=== PATIENT | female | born 1970 | race Caucasian/White ===

== ENCOUNTER 2017-10-19 07:28 | Emergency (ER) | payer OTHER ==
[2017-10-19 07:42] VITALS: TEMP 98.7; BMI 24.0
[2017-10-19] MEDS ORDERED: Morphine 4 mg/ml ISec IVP STA (08:27)
--- NOTE | 2017-10-19 08:30 | ED PDOC ---
Arrival/HPI - General Chief Complaint: Trauma Time Seen by Provider: 10/19/17 07:43 Historian: Patient - History of Present Illness Narrative History of Present Illness (Text): 10/19/17 08:25 Vy Rome is a 46 year old female, with no significant past medical history , presents to the emergency department complaining of right elbow pain s/p fall. Patient denies any head injury or LOC. Patient denies any fevers, chest pain, neck pain, abdominal pain, headache, dizziness, cough or any other complaints. Time/Duration: Prior to Arrival Symptom Onset: Sudden Symptom Course: Unchanged Activities at Onset: Light Context: Walking Past Medical History - Provider Review Nursing Documentation Reviewed: Yes - Psychiatric Hx Substance Use: No Family/Social History - Physician Review Nursing Documentation Reviewed: Yes Family/Social History: Unknown Family HX Smoking Status: Never Smoked Hx Alcohol Use: No Hx Substance Use: No Allergies/Home Meds Allergies/Adverse Reactions: Allergies No Known Allergies Allergy (Unverified 10/19/17 08:26) Review of Systems - Review of Systems Constitutional: Normal Eyes: Normal ENT: Normal Respiratory: Normal. absent: SOB, Cough Cardiovascular: Normal. absent: Chest Pain, Palpitations Gastrointestinal: Normal. absent: Abdominal Pain, Diarrhea, Nausea, Vomiting Genitourinary Female: Normal. absent: Dysuria, Frequency, Hematuria, Urine Output Changes Musculoskeletal: Other (right elbow pain). absent: Back Pain Skin: Normal. absent: Rash Neurological: Normal. absent: Headache, Dizziness Endocrine: Normal Hemo/Lymphatic: Normal Psychiatric: Normal Physical Exam Vital Signs Reviewed: Yes Vital Signs Temp Pulse Resp BP Pulse Ox 10/19/17 11:28 84 12 136/63 99 10/19/17 07:40 98.7 F 88 18 153/100 H 100 Temperature: Afebrile Blood Pressure: Normal Pulse: Regular Respiratory Rate: Normal Appearance: Positive for: Well-Appearing, Non-Toxic, Comfortable Pain Distress: None Mental Status: Positive for: Alert and Oriented X 3 - Systems Exam Head: Present: Atraumatic, Normocephalic Pupils: Present: PERRL Extroacular Muscles: Present: EOMI Conjunctiva: Present: Normal Mouth: Present: Moist Mucous Membranes Neck: Present: Normal Range of Motion Respiratory/Chest: Present: Clear to Auscultation, Good Air Exchange. No: Respiratory Distress, Accessory Muscle Use Cardiovascular: Present: Regular Rate and Rhythm, Normal S1, S2. No: Murmurs Abdomen: Present: Normal Bowel Sounds. No: Tenderness, Distention, Peritoneal Signs Back: Present: Normal Inspection Upper Extremity: Present: Edema (lateral aspect of right elbow). No: Cyanosis Lower Extremity: Present: Normal Inspection. No: Edema Neurological: Present: GCS=15, CN II-XII Intact, Speech Normal Skin: Present: Warm, Dry, Normal Color. No: Rashes Psychiatric: Present: Alert, Oriented x 3, Normal Insight, Normal Concentration Medical Decision Making ED Course and Treatment: 10/19/17 08:32 Impression: 46 year old female presents to the ED complaining of right elbow pain s/p fall. Plan: -- Xray Rt. Elbow -- Labs -- Morphine -- Reassess and disposition Progress Notes: 10/19/17 09:37 Xray Right Elbow reviewed, shows: BONES: Bone mineralization is normal. There there is a linear ossific density superior to the olecranon process. JOINTS: There is anterior dislocation of the elbow joint. SOFT TISSUES: Periarticular soft tissue swelling and edema. JOINT EFFUSION: Large joint effusion. OTHER FINDINGS: None. IMPRESSION: Anterior dislocation of the elbow joint. Case discussed with Dr. Mendez, who is aware and agrees with plan. Accepts patient into his care and will perform reduction procedure. 10/19/17 10:[address] Lainez, the patient's PMD, who is aware and agrees with plan. - Lab Interpretations Lab Results: 10/19/17 08:45 10/19/17 08:45 Lab Results 10/19/17 08:45: Sodium 140, Potassium 3.7, Chloride 106, Carbon Dioxide 23, Anion Gap 14, BUN 16, Creatinine 0.5 L, Est GFR ( Amer) > 60, Est GFR ( Non-Af Amer) > 60, Random Glucose 118 H, Calcium 8.9, Total Bilirubin 0.2, AST 41 H, ALT 34, Alkaline Phosphatase 111, Total Protein 7.4, Albumin 3.8, Globulin 3.6, Albumin/Globulin Ratio 1.0 L 10/19/17 08:45: PT 12.0, INR 1.04, APTT 29.1 10/19/17 08:45: WBC 7.8 D, RBC 4.87, Hgb 9.2 L, Hct 31.9 L, MCV 65.5 L, MCH 18.9 L, MCHC 28.8 L, RDW 18.8 H, Plt Count 425, MPV 9.9, Gran % 82.9 H, Lymph % (Auto) 11.1 L, [place] % (Auto) 4.2, Eos % (Auto) 1.4 L, Baso % (Auto) 0.4, Gran # 6.48, Lymph # (Auto) 0.9 L, [place] # (Auto) 0.3, Eos # (Auto) 0.1, Baso # (Auto) 0.03 - RAD Interpretation Radiology Orders: 10/19/17 08:26 ELBOW RIGHT 3 VIEWS ROUTINE [RAD] Stat 10/19/17 10:54 ELBOW RIGHT 3 VIEWS ROUTINE [RAD] Stat - Medication Orders Current Medication Orders: Discontinued Medications Morphine Sulfate (Morphine) 4 mg IVP STAT STA Stop: 10/19/17 08:28 Last Admin: 10/19/17 08:46 Dose: 4 mg LEYLA Pain Assessment Document 10/19/17 08:46 ([facility]17 08[id number] Pain Reassessment Is this a pain reassessment? Yes Location Left, Right or Bilateral Right Pain Location Body Site Elbow Description Description Constant Pain Behavior Moaning Crying Aggravating Factors Changing Position IVP Administration Document 10/19/17 08:46 (Rec: 10/19/17 08:49 [id number] Charges for Administration # of IVP Administrations 1 Re-Assess: LEYLA Pain Assessment Document 10/19/17 09:46 (Rec: 10/19/17 11:31 [id number] Pain Reassessment Is this a pain reassessment? Yes Sleep Is patient sleeping during reassessment? No Presence of Pain Presence of Pain No - Scribe Statement The provider has reviewed the documentation as recorded by the Scribdamien Woodard All medical record entries made by the Scribdamien were at my direction and personally dictated by me. I have reviewed the chart and agree that the record accurately reflects my personal performance of the history, physical exam, medical decision making, and the department course for this patient. I have also personally directed, reviewed, and agree with the discharge instructions and disposition. Disposition/Present on Arrival - Present on Arrival Any Indicators Present on Arrival: No History of DVT/PE: No History of Uncontrolled Diabetes: No Urinary Catheter: No History of Decub. Ulcer: No History Surgical Site Infection Following: None - Disposition Have Diagnosis and Disposition been Completed?: Yes Diagnosis: Elbow dislocation Disposition: HOME/ ROUTINE Disposition Time: 11:30 Condition: IMPROVED Discharge Instructions (ExitCare): Elbow Dislocation Additional Instructions: Thank you for letting us take care of you today. The emergency medical care you received today was directed at your acute symptoms. If you were prescribed any medication, please fill it and take as directed. It may take several days for your symptoms to resolve. Return to the Emergency Department if your symptoms worsen, do not improve, or if you have any other problems. Please contact your doctor or call one of the physicians/clinics you have been referred to that are listed on the Patient Visit Information form that is included in your discharge packet. Bring any paperwork you were given at discharge with you along with any medications you are taking to your follow up visit. Our treatment cannot replace ongoing medical care by a primary care provider (PCP) outside of the emergency department. Thank you for allowing the [facility] team to be part of your care today. Follow up with Dr. Cardenas as scheduled for re-evaluation and further management. Prescriptions: Ibuprofen [Motrin] 600 mg PO Q6 PRN #20 tab PRN Reason: Pain, Moderate (4-7) Referrals: Tessa Lainez MD [Primary Care Provider] - Follow up with primary Roque Cardenas DO [Staff Provider] - Follow up with primary Forms: WORK NOTE
[2017-10-19 09:09] LABS: BASO # 0.03 K/mm3 (0.0-2.0); BASO % 0.4 % (0.0-3.0); EOS # 0.1 (0.0-0.7); EOS % 1.4 % (1.5-5.0); GRAN # 6.48 (1.4-6.5); GRAN % 82.9 % (50.0-68.0); HEMOGLOBIN 9.2 g/dL (12.0-16.0); LYMPH # 0.9 (1.2-3.4); LYMPH % 11.1 % (22.0-35.0); MEAN CELL VOLUME 65.5 fl (80.0-105.0); MEAN CORPUSCULAR HEMOGLOBIN 18.9 pg (25.0-35.0); MEAN CORPUSCULAR HGB CONC 28.8 g/dl (31.0-37.0); MEAN PLATELET VOLUME 9.9 fl (7.0-11.0); MONO # 0.3 (0.1-0.6); MONO % 4.2 % (1.0-6.0); RBC 4.87 10^6/uL (3.5-6.1); RED CELL DISTRIBUTION WIDTH 18.8 % (11.5-14.5); WHITE BLOOD COUNT 7.8 10^3/ul (4.5-11.0)
[2017-10-19 09:19] LABS: ALBUMIN 3.8 g/dL (3.0-4.8); BLOOD UREA NITROGEN 16 mg/dL (7-21); CALCIUM 8.9 mg/dL (8.4-10.5); GFR AFRICAN-AMERICAN > 60; GFR NON-AFRICAN AMERICAN > 60
[2017-10-19 09:20] LABS: ALT/SGPT 34 U/L (7-56); AST/SGOT 41 U/L (14-36)
[2017-10-19 09:23] LABS: INR 1.04 (0.93-1.08); PARTIAL THROMBOPLASTIN TIME 29.1 Seconds (25.1-36.5)
--- NOTE | 2017-10-19 09:28 | RAD ---
PROCEDURE: Radiographs of the right elbow. HISTORY: fall - r/o fx COMPARISON: No prior. FINDINGS: BONES: Bone mineralization is normal. There there is a linear ossific density superior to the olecranon process. JOINTS: There is anterior dislocation of the elbow joint. SOFT TISSUES: Periarticular soft tissue swelling and edema. JOINT EFFUSION: Large joint effusion. OTHER FINDINGS: None. IMPRESSION: Anterior dislocation of the elbow joint. Linear ossific density superior to the olecranon process may represent a chip fracture. Large joint effusion and periarticular soft tissue swelling.
[2017-10-19] MEDS ORDERED: Lidocaine 1% Inj (20ml) ONE (10:27)
[2017-10-19] MEDS ORDERED: Bupivacaine 0.5% Inj(30mL) ONE ×2 (10:27→10:29)
--- NOTE | 2017-10-19 11:31 | RAD ---
PROCEDURE: Radiographs of the right elbow. HISTORY: post-reduction COMPARISON: Plain radiographs performed earlier the same day. FINDINGS: BONES: No acute displaced fracture or bone destruction. Bone mineralization is normal. JOINTS: Status post close reduction, there is normal bone alignment. SOFT TISSUES: Normal. JOINT EFFUSION: None. OTHER FINDINGS: None. IMPRESSION: Status post closed reduction, normal bone alignment.
[2017-10-19 12:45] VITALS: BP 136/63; PULSE 84; RESP 12; O2SAT 99
--- NOTE | 2017-10-20 08:31 | ED ---
ORTHOPEDIC CONSULT AND PROCEDURE REPORT Patient is a 46-year-old female, who was seen in the emergency room with a dislocated right elbow from a fall on the ice. It appears to be posterolateral with no evidence of fracture, but tremendously swollen. It is approximately 11:00 now and this happened at about 7:00 in the morning. They could not get anybody else from here to do an urgent closed reduction with the help of Xylocaine and Marcaine. There is no neurological deficits, but has a tremendously swollen right elbow and tremendous pain. After a hematoma block was done with the medication, we were able to do a closed reduction with manualtraction and then sent her back for x-ray to see if all was back in the groove and the radial head is back, and she could pronate and supinate fine, and she can go through an active range of motion without any evidence of locking or loose body. It may not be 100% range of motion, but hopefully that will come when all her swelling is down. Post-reduction x-ray looks fine. We are going to send her home with a posterior splint and hopefully she could find a doctor, that sees Medicaid patients as this was done as an emergency. FINAL DIAGNOSES: Posterolateral right elbow dislocation without any evidence of fracture, no neurologic deficits, and it is on the dominant side and she works as a homemaker. Roque Cardenas DO [place]
== END 2017-10-19 12:40 | disposition home or self-care (01) ==
LOC: ED 07:28
DX: S53.114A Anterior dislocation of right ulnohumeral joint, initial encounter (principal); W01.0XXA Fall on same level from slipping, tripping and stumbling without subsequent striking against object, initial encounter; Y93.01 Activity, walking, marching and hiking; Y92.480 Sidewalk as the place of occurrence of the external cause
CPT/HCPCS: 24600; 73080; 80053; 85025; 85610; 85730; 96374; 99285; J2270